=== PATIENT | male | born 1965 | race Two or more races ===

== ENCOUNTER 2019-06-12 13:13 | Emergency (ER) | payer SELFPAY ==
[~2019-06-12] VITALS: Ht 175.3 cm; Wt 75.0 kg
[2019-06-12 15:22] VITALS: BP 145/89
== END 2019-06-12 15:20 | disposition home or self-care (01) ==
LOC: ER 13:13
DX: S93.491A Sprain of other ligament of right ankle, initial encounter (principal); E11.9 Type 2 diabetes mellitus without complications; I10 Essential (primary) hypertension; E78.00 Pure hypercholesterolemia, unspecified; W01.0XXA Fall on same level from slipping, tripping and stumbling without subsequent striking against object, initial encounter; Y93.89 Activity, other specified; Y92.018 Other place in single-family (private) house as the place of occurrence of the external cause
CPT/HCPCS: 99281